=== PATIENT | female | born 1975 ===

== ENCOUNTER 2024-06-26 08:00 | Outpatient (CLI) | payer OTHER ==
[~2024-06-26] VITALS: Ht 170.2 cm; Wt 88.9 kg
[2024-06-26 10:16] LABS: URINE APPEARANCE Clear; URINE BILIRRUBIN Negative (NEGATIVE); URINE BLOOD Negative; URINE COLOR Yellow; URINE GLUCOSE Negative (NEGATIVE); URINE KETONE Negative (NEGATIVE); URINE LEUKOCYTE Negative; URINE NITRATE Negative; URINE PROTEIN Negative (NEGATIVE); URINE UROBILINOGEN 0.2 E.U./dl
[2024-06-26 10:17] LABS: URINE BACTERIA 100.7 uL (0.0-1933); URINE EPITHELIAL CELLS 15.1 uL (0.0-38.8); URINE RBC 12.9 uL (0.0-20.8); URINE WBC 3.8 uL (0.0-23.2)
[2024-06-26 10:17] LABS: HEMATOCRIT 40.1 % (36.0-45.00); HEMOGLOBIN 13.3 g/dL (12.0-15.00); MEAN CORPUSCULAR HEMOGLOBIN 29.4 pg (27.00-32.0); MEAN CORPUSCULAR HGB CONC 33.1 g/dl (32.0-36.0); PLATELET COUNT 345 K/uL (150-450); RED BLOOD COUNT 4.51 M/uL (4.00-6.00); RED CELL DISTRIBUTION WIDTH 14.5 % (11.5-14.5)
[2024-06-26 10:42] LABS: INR 1.08; PROTHROMBIN TIME 11.7 SECONDS (9.0-11.5)
[2024-06-26] MEDS ORDERED: INNOPRAN XL80 MG (10:54)
[2024-06-26] MEDS ORDERED: SYNTHROID50 MCG PO (10:54)
[2024-06-26] MEDS ORDERED: COZAAR50 MG PO (10:54)
[2024-06-26 10:55] VITALS: BP 124/78
[2024-06-26 11:31] LABS: ALBUMIN 3.9 gm/dL (3.4-5.0); BILIRUBIN TOTAL 0.52 mg/dL (0.3-1.2); CALCIUM 9.3 mg/dL (8.5-10.1); CREATININE SERUM 0.78 mg/dL (0.55-1.02); GFR 78.17; GLOBULINA 4.3 G/DL (2.4-3.5); POTASSIUM 4.04 mEq/L (3.5-5.1); TOTAL PROTEIN 8.2 gm/dL (6.4-8.2)
== END 2024-06-26 08:01 | disposition home or self-care (01) ==
LOC: RAD 08:00 → LAB 08:00 → SURH 07-03 09:00 → EDSTATUS 07-03 09:00 → SURH 07-03 14:30
PROVIDERS: ATTEND Obstetrics & Gynecology Obstetrics
DX: N93.9 Abnormal uterine and vaginal bleeding, unspecified (principal)